=== PATIENT | female | born 1945 | race Caucasian/White ===

== ENCOUNTER → 2018-11-02 | Outpatient (CLI) | payer MEDICARE, OTHER ==
[~2018-11-02] MED LIST: ASPIRIN E.C. 8181 MG PO; GLUCOSAMINE & C1 CA1 PO; LIPITOR 10MG10 MG PO; MICARDIS80 MG PO; MULTIPLE VITAMI1 CAP PO; NATURE'S BLEN1000 MG PO; VITAMIN C500 MG PO; VITAMIN D 400400 IU PO
== END ==
LOC: MC.RAD 11-01 07:40
DX: Z12.31 Encounter for screening mammogram for malignant neoplasm of breast (principal)

== ENCOUNTER → 2020-04-04 | Outpatient (CLI) | payer MEDICARE, OTHER | LOC: MC.RAD 07:40 | DX: Z12.31 Encounter for screening mammogram for malignant neoplasm of breast (principal); N63.21 Unspecified lump in the left breast, upper outer quadrant; R92.1 Mammographic calcification found on diagnostic imaging of breast ==

== ENCOUNTER → 2020-04-10 | Outpatient (CLI) | payer MEDICARE, OTHER | LOC: MC.RAD 12:48 | DX: N60.02 Solitary cyst of left breast (principal) ==

== ENCOUNTER → 2021-01-09 | Outpatient (CLI) | payer MEDICARE, OTHER ==
[~2021-01-09] MED LIST changes: +B COMPLEX & B121 TAB; +BIOTIN5000 MCG PO; +EPA FISH OIL1 SGL PO; +GLUCOPHAGE500 MG/TAB PO; +HAIRSKINNAILS PO; +TRICOR145 MG PO
== END ==
LOC: MC.RAD 14:00
DX: N63.21 Unspecified lump in the left breast, upper outer quadrant (principal)

== ENCOUNTER 2021-05-29 07:55 | Day surgery (SDC) | payer MEDICARE, OTHER ==
[~2021-05-29] VITALS: Ht 162.6 cm; Wt 73.2 kg
[~2021-05-29 07:55] MED LIST changes: -B COMPLEX & B121 TAB; -BIOTIN5000 MCG PO; -EPA FISH OIL1 SGL PO; -GLUCOPHAGE500 MG/TAB PO; -HAIRSKINNAILS PO; -TRICOR145 MG PO
[2021-05-29 08:32] VITALS: BP 126/72; PULSE 86; TEMP 97.6
[2021-05-29 08:34] VITALS: BP 126/72; PULSE 86; TEMP 97.6
[2021-05-29] MEDS ORDERED: TRICOR145 MG PO (08:53)
[2021-05-29] MEDS ORDERED: BIOTIN5000 MCG PO (08:54)
[2021-05-29] MEDS ORDERED: EPA FISH OIL1 SGL PO (08:54)
[2021-05-29] MEDS ORDERED: HAIRSKINNAILS PO (08:55)
[2021-05-29] MEDS ORDERED: B COMPLEX & B121 TAB (08:55)
[2021-05-29] MEDS ORDERED: GLUCOPHAGE500 MG/TAB PO (08:56)
[2021-05-29 10:00] VITALS: BP 90/59; PULSE 65; TEMP 96.2
[2021-05-29 10:15] VITALS: BP 95/67; PULSE 74
[2021-05-29 10:30] VITALS: BP 110/74; PULSE 61
--- NOTE | 2021-05-29 10:55 | NUR ---
1000 Pt returns from endo procedure via cart and RN assist to [facility]. Pt ambulates from cart to recliner with RN assist. Monitors on and alarms set. Call light within reach. Report received from LUCY Tate. Pt alert and oriented. Pt requests applesauce, juice, and crackers. Pt denies any pain or nausea. 1010 Pt taking food and drink well. No complications noted. 1040 Discharge instructions given to pt and . All questions answered to their satisfaction. Handed to pt are a thank you card and discharge information. 1055 Pt transferred out of the hospital via wheelchair and this RN assist, to private vehicle driven by pt's .
== END 2021-05-29 10:55 | disposition home or self-care (01) ==
LOC: SDCO 07:55
DX: Z12.11 Encounter for screening for malignant neoplasm of colon (principal); K57.30 Diverticulosis of large intestine without perforation or abscess without bleeding; K21.9 Gastro-esophageal reflux disease without esophagitis; I10 Essential (primary) hypertension; E78.5 Hyperlipidemia, unspecified; E11.9 Type 2 diabetes mellitus without complications; J45.909 Unspecified asthma, uncomplicated; Z86.010 Personal history of colon polyps; Z20.822 Contact with and (suspected) exposure to COVID-19; Z79.84 Long term (current) use of oral hypoglycemic drugs; Z79.899 Other long term (current) drug therapy; Z79.82 Long term (current) use of aspirin
CPT/HCPCS: J2704; J7030